=== PATIENT | male | born 1955 | race Caucasian/White ===

== ENCOUNTER 2018-08-28 16:11 | Emergency (ER) | payer OTHER ==
[2018-08-28] MEDS ORDERED: AUGMENTIN 875875 MG PO (18:39)
== END 2018-08-28 18:51 | disposition home or self-care (01) ==
LOC: ED 16:11
DX: S51.812A Laceration without foreign body of left forearm, initial encounter (principal); S51.852A Open bite of left forearm, initial encounter; Z88.6 Allergy status to analgesic agent; W54.0XXA Bitten by dog, initial encounter; Y93.89 Activity, other specified; Y92.89 Other specified places as the place of occurrence of the external cause; Y99.8 Other external cause status

== ENCOUNTER 2018-08-31 13:36 | Emergency (ER) | payer OTHER ==
[~2018-08-31] VITALS: Wt 104.3 kg
[~2018-08-31 13:36] MED LIST: AUGMENTIN 875875 MG PO
== END 2018-08-31 14:42 ==
LOC: ED 13:36
DX: Z23 Encounter for immunization (principal); Z88.6 Allergy status to analgesic agent

== ENCOUNTER 2018-09-04 07:51 | Emergency (ER) | payer OTHER ==
[~2018-09-04] VITALS: Ht 185.4 cm; Wt 104.3 kg
[2018-09-04] MEDS ORDERED: TRIPLE ANTIB28.35 GM T (08:08)
== END 2018-09-04 08:20 | disposition home or self-care (01) ==
LOC: ED 07:51
DX: Z23 Encounter for immunization (principal); Z88.8 Allergy status to other drugs, medicaments and biological substances

== ENCOUNTER 2018-09-11 08:35 | Emergency (ER) | payer OTHER ==
[~2018-09-11] VITALS: Ht 185.4 cm; Wt 104.3 kg
[~2018-09-11 08:35] MED LIST changes: +TRIPLE ANTIB28.35 GM T
== END 2018-09-11 09:18 | disposition home or self-care (01) ==
LOC: ED 08:35
DX: Z23 Encounter for immunization (principal); Z88.6 Allergy status to analgesic agent